=== PATIENT | male | born 1970 | race Caucasian/White ===

== ENCOUNTER 2019-05-19 21:39 | Emergency (ER) | payer MEDICARE, OTHER ==
[~2019-05-19] VITALS: Ht 193 cm; Wt 137.9 kg
--- OUTSIDE RECORDS SUMMARY | ~2019-05-19 | XMS | Clinical Summary ---
Demographics + + + | Address | [address] | | | [place] [address] | + + + | Home Phone | | + + + | Preferred Language | Unknown | + + + | Marital Status | Single | + + + | Religion Affiliation | Unknown | + + + | Race | Unknown | + + + | Ethnic Group | Unknown | + + + Author + + + | Author | [facility] | | | and [place] | + + + | Organization | [facility] | | | and [place] | + + + | Address | Unknown | + + + | Phone | Unavailable | + + + Support + + +---------+ + | Name | Relationship | Address | Phone | + + +---------+ + | Stacia Moreno | ECON | Unknown | | + + +---------+ + Care Team Providers + +------+ + | Care Purchasing Agent Name | Role | Phone | + +------+ + | John Catalan MD | PCP | | + +------+ + Allergies Not on File Medications Not on file Active Problems Not on file Social History + +-------+ +--------+------+ | Tobacco Use | Types | Packs/Day | Years | Date | | | | | Used | | + +-------+ +--------+------+ | Never Assessed | | | | | + +-------+ +--------+------+ + + + | Sex Assigned at | Date Recorded | | | | + + + | Not on file | | + + + + + + + | Job Start Date | Occupation | Industry | + + + + | Not on file | Not on file | Not on file | + + + + + + + + | Travel History | Travel Start | Travel End | + + + + + + | No recent travel history available. | + + Last Filed Vital Signs Not on file Plan of Treatment +--------+---------+ + + + | Date | Type | Specialty | Care Team | Description | +--------+---------+ + + + | 09/18/ | Office | Cardiology | Dianne Avelar DO | | | 2020 | Visit | | [address] | | | | | | [place] | | | | | | [address] | | | | | | | | +--------+---------+ + + + + + + + + | Health Maintenance | Due Date | Last Done | Comments | + + + + + | Vaccine: | | | | | Dtap/Tdap/Td (1 - | 2 | | | | Tdap) | | | | + + + + + | Vaccine: Influenza | | | | | (#1) | 9 | | | + + + + + Results Not on filefrom Last 3 Months Insurance + +--------+ +--------+ +---------+--------+ | Payer | Benefi | Subscriber | Effect | Phone | Address | Type | | | t Plan | ID | laurent | | | | | | / | | Dates | | | | | | Group | | | | | | + +--------+ +--------+ +---------+--------+ | MEDICARE | MEDICA | [id number] | 07/27/19 | [phone] | | Medica | | | RE | | 10-Pre | 5 | | re | | | PART A | | sent | | | | | | AND B | | | | | | + +--------+ +--------+ +---------+--------+ + +--------+ +--------+ + + | Guarantor Name | Accoun | Relation to | Date | Phone | Billing Address | | | t Type | Patient | of | | | | | | | | | | + +--------+ +--------+ + + | CariFadi nelson Prince | Person | Self | [birth year] | [address] | | | al/Fam | | 1971 | [phone] | [place] [address] | | | [place] | | | [address] (Home) | | + +--------+ +--------+ + + Advance Directives + + + + + | Type | Date Recorded | Patient | Explanation | | | | High School Assistant Principal | | + + + + + | Power of | | | | | Facilities Administrator | | | | + + + + + | Advance | | | | | Directive | | | | + + + + +"
--- OUTSIDE RECORDS SUMMARY | ~2019-05-19 | XMS | Clinical Summary ---
Demographics + + + | Address | [address] | | | [place] [address] | + + + | Home Phone | | + + + | Preferred Language | Unknown | + + + | Marital Status | Single | + + + | Adventism Affiliation | Unknown | + + + | Race | Unknown | + + + | Ethnic Group | Unknown | + + + Author + + + | Author | [facility] | | | and [place] | + + + | Organization | [facility] | | | [...] Team Providers + +------+ + | Care Sleeping Room Cleaner Name | Role | Phone | + [...] [place] | | | | | | [address] | | | | | | | [...] +--------+ +---------+--------+ | MEDICARE | MEDICA | [id number] | 07/27/19 | [phone] | | Medica [...] | 1971 | [phone] | [place] [address] | | | [place] | | | 9 (Home) | | + +--------+ +--------+ + + Advance Directives + + + + + | Type | Date Recorded | Patient | Explanation | | | | Dining Services Director | | + + + + + | Power of | | | | | Materials Scientist | | | | + + + + + | Advance | | | | | Directive | | | | + + + + +"
[~2019-05-19 21:39] MED LIST: ADVAIR 250-501 EACH INH; AMLODIPINE BESY10 MG PO; BAYER CHEWABLE81 MG PO; ISOSORBIDE MONO60 MG PO; METFORMIN HCL500 M1 PO; METOPROLOL SUC100 MG PO; PLAVIX75 MG PO; RANEXA1000 MG PO; SERTRALINE HCL100 MG PO; WELLBUTRIN SR150 MG PO; ZANTAC150 MG PO; ZESTRIL2.5 MG
[2019-05-19] MEDS ORDERED: ABILIFY5 MG PO (21:51)
[2019-05-19] MEDS ORDERED: GLIPIZIDE ER10 MG PO (21:52)
[2019-05-19] MEDS ORDERED: CYCLOBENZAPRINE10 MG PO (21:52)
[2019-05-19] MEDS ORDERED: FENOFIBRATE145 MG PO (21:52)
[2019-05-19] MEDS ORDERED: OMEPRAZOLE20 MG PO (21:53)
[2019-05-19] MEDS ORDERED: FOLIC ACID0.4 MG PO (21:53)
== END 2019-05-19 23:17 | disposition home or self-care (01) ==
LOC: ED 21:39
DX: R10.11 Right upper quadrant pain (principal); I25.2 Old myocardial infarction; E11.9 Type 2 diabetes mellitus without complications; I10 Essential (primary) hypertension; G47.30 Sleep apnea, unspecified; F41.9 Anxiety disorder, unspecified; J45.909 Unspecified asthma, uncomplicated; Z85.828 Personal history of other malignant neoplasm of skin; Z79.899 Other long term (current) drug therapy; Z79.02 Long term (current) use of antithrombotics/antiplatelets; Z79.82 Long term (current) use of aspirin
CPT/HCPCS: 80053; 81001; 83690; 85025; 96374; 99284-25; J1885

== ENCOUNTER 2019-05-30 02:42 | Emergency (ER) | payer MEDICARE, MEDICAID ==
[~2019-05-30] VITALS: Ht 193 cm; Wt 137.9 kg
--- OUTSIDE RECORDS SUMMARY | ~2019-05-30 | XMS | Clinical Summary ---
Demographics + + + | Address | [address] | | | [place] [address] | + + + | Home Phone | | + + + | Preferred Language | Unknown | + + + | Marital Status | Single | + + + | Buddhism Affiliation | Unknown | + + + | Race | Unknown | + + + | Ethnic Group | Unknown | + + + Author + + + | Author | [facility] | | | and [place] | + + + | Organization | [facility] | | | and [...] Team Providers + +------+ + | Care Dialysis Nurse Name | Role | Phone | + [...] [place] | | | | | | [address] | | | | | | | [...] +--------+ +---------+--------+ | MEDICARE | MEDICA | [id number] | 07/27/19 | [phone] | | Medica [...] | 1971 | [phone] | [place] [address] | | | [place] | | | 9 (Home) | | + +--------+ +--------+ + + Advance Directives + + + + + | Type | Date Recorded | Patient | Explanation | | | | Net Programmer | | + + + + + | Power of | | | | | Cord Splicer | | | | + + + + + | Advance | | | | | Directive | | | | + + + + +"
--- OUTSIDE RECORDS SUMMARY | ~2019-05-30 | XMS | Clinical Summary ---
Demographics + + + | Address | [address] | | | [place] [address] | + + + | Home Phone | | + + + | Preferred Language | Unknown | + + + | Marital Status | Single | + + + | Lutheran Affiliation | Unknown | + + + | Race | Unknown | + + + | Ethnic Group | Unknown | + + + Author + + + | Author | [facility] | | | and [place] | + + + | Organization | [facility] | | | and [...] Team Providers + +------+ + | Care Canal Structure Operator Name | Role | Phone | + [...] [place] | | | | | | [address] | | | | | | | [...] +--------+ +---------+--------+ | MEDICARE | MEDICA | [id number] | 07/27/19 | [phone] | | Medica [...] | 1971 | [phone] | [place] [address] | | | [place] | | | 9 (Home) | | + +--------+ +--------+ + + Advance Directives + + + + + | Type | Date Recorded | Patient | Explanation | | | | Laborer Salvage | | + + + + + | Power of | | | | | Smash Fixer | | | | + + + + + | Advance | | | | | Directive | | | | + + + + +"
[~2019-05-30 02:42] MED LIST changes: +ABILIFY5 MG PO; +CYCLOBENZAPRINE10 MG PO; +FENOFIBRATE145 MG PO; +FOLIC ACID0.4 MG PO; +GLIPIZIDE ER10 MG PO; +OMEPRAZOLE20 MG PO
[2019-05-30] MEDS ORDERED: NEURONTIN300 MG PO (03:02)
--- NOTE | 2019-05-30 20:15 | EKG ---
[facility] [address] [facility] [place], [place] [address] Signed Normal sinus rhythm Normal ECG When compared with ECG of 31-JAN-2019 00:20, No significant change was found Confirmed by DAYANA PENA DO ([id number]) on 05/30/2019 8:15:09 PM Electronically Signed By: DAYANA PENA DO 05/30/192014 PATIENT NAME: PEREZ ROMAN Electrocardiogram DATE OF : 74 PHYSICIAN: DAYANA PENA DO REPORT #: [id number] REPORT IS CONFIDENTIAL AND NOT TO BE RELEASED WITHOUT AUTHORIZATION
== END 2019-05-30 07:05 | disposition home or self-care (01) ==
LOC: ED 02:42
DX: R07.2 Precordial pain (principal); I10 Essential (primary) hypertension; E11.9 Type 2 diabetes mellitus without complications; I25.2 Old myocardial infarction; F41.9 Anxiety disorder, unspecified; G47.30 Sleep apnea, unspecified; J45.909 Unspecified asthma, uncomplicated; Z79.899 Other long term (current) drug therapy; Z79.82 Long term (current) use of aspirin
CPT/HCPCS: 71045; 80053; 83735; 84484; 85025; 93005; 93010; 99285-25